=== PATIENT | female | born 1955 | race Hispanic/Latino ===

== ENCOUNTER 2018-03-04 20:20 | Emergency (ER) | payer MEDICARE, OTHER ==
[~2018-03-04] VITALS: Ht 139.7 cm; Wt 68.5 kg
--- NOTE | 2018-03-04 21:25 | Diagnostic Imaging Report ---
KNEE LEFT THREE VIEWS Comparison: None Clinical history: Pain Findings: No fracture or dislocation. Mild tricompartmental degenerative changes. Impression: No acute bony abnormality Signed by: Dr Sofi Sanabria MD on 03/04/2018 9:22 PM
[2018-03-04 23:34] VITALS: BP 139/73
[2018-03-05] MEDS ORDERED: HYDROCODONE/APAP 7.5MG-325MG 1 EA TAB PO ONE
== END 2018-03-04 22:06 | disposition home or self-care (01) ==
LOC: ER 20:20
DX: M25.562 Pain in left knee (principal); M79.652 Pain in left thigh; M17.12 Unilateral primary osteoarthritis, left knee; I10 Essential (primary) hypertension
CPT/HCPCS: 99283

== ENCOUNTER 2018-04-05 13:56 | Outpatient (RCR) | payer MEDICARE, OTHER | END 2018-04-07 | LOC: PT 13:56 | PROVIDERS: ATTEND Specialist | DX: M17.12 Unilateral primary osteoarthritis, left knee (principal); M25.562 Pain in left knee; M62.81 Muscle weakness (generalized) | CPT/HCPCS: 97162; G8978; G8979 ==

== ENCOUNTER 2018-04-24 15:00 | Outpatient (RCR) | payer MEDICARE, OTHER | END 2018-05-08 | LOC: PT 15:00 | PROVIDERS: ATTEND Specialist | DX: M17.12 Unilateral primary osteoarthritis, left knee (principal); M25.562 Pain in left knee; M62.81 Muscle weakness (generalized) ==

== ENCOUNTER 2018-11-06 05:26 | Observation (INO) | payer MEDICARE ==
[2018-11-03 10:47] LABS: BASOPHILS % 0.6 % (0.0-1.0); EOSINOPHILS # (AUTO) 0.1 (0.0-0.4); EOSINOPHILS % 2.4 % (0.0-6.0); HEMATOCRIT 41.2 % (34.2-44.1); HEMOGLOBIN 13.6 g/dL (12.0-16.0); LYMPHOCYTES # (AUTO) 1.5 (1.0-3.2); LYMPHOCYTES % 30.7 % (18.0-39.1); MEAN CORPUSCULAR HEMOGLOBIN 29.2 pg (28-32); MEAN CORPUSCULAR VOLUME 88.4 fL (81-99); MONOCYTES # (AUTO) 0.4 (0.2-0.8); MONOCYTES % 7.4 % (4.4-11.3); NEUTROPHILS # (AUTO) 2.9 (2.1-6.9); NEUTROPHILS % 58.5 % (38.7-80.0); PLATELET COUNT 245 x10e3/uL (140-360); RED BLOOD COUNT 4.66 x10e6/uL (3.6-5.1); RED CELL DISTRIBUTION WIDTH 12.8 % (11.7-14.4)
[~2018-11-06] VITALS: Ht 149.9 cm; Wt 69.9 kg
[~2018-11-06 05:26] MED LIST: LEVOTHYROXINE50 MCG PO
--- OUTSIDE RECORDS SUMMARY | 2018-11-06 05:32 | XMS REPORT ---
Author Author [facility] Address Unknown Phone Unavailable Care Team Providers Care Office Rental Clerk Name Role Phone Shon PAREDES Unavailable Unavailable Problems This patient has no known problems. Allergies, Adverse Reactions, Alerts This patient has no known allergies or adverse reactions. Medications This patient has no known medications. Results Test Description Test Time Test Comments Text Results Atomic Results Result Comments SCR MAMM BILATERAL ALHAJI CAD DIGITAL 2018-06-05 14:01:14 - SCR MAMM BILATERAL ALHAJI CAD DIGITALBILATERAL DIGITAL SCREENING MAMMOGRAM 3D/2D WITH CAD: 06/03/2018CLINICAL: Asymptomatic. Digital breast tomosynthesis was performed in addition to routine CC and MLO views. Current mammographic images were evaluated by either a [employer] M-Vu or a [employer] ImageChecker CAD (computer aided detection system). Comparison is made to exams dated 03/26/2017 mammogram, 05/10 mammogram - [facility]-, 06/01/2011 mammogram, and 05/12/2011 mammogram - [facility]. There are scattered fibroglandular tissues in both breasts. No suspicious mass, architectural distortion, malignant type calcification, or lymph node abnormality detected. Breast architecture is stable compared to prior exams.IMPRESSION: NEGATIVEThere is no mammographic evidence of malignancy. Resume annual screening mammography in one year. Christy Gaona D.O. al/:06/05/2018 14:01:14 Physician Office Secretary: Cintia PONCE, [facility]-FWletter sent: BIRADS 1-2 Normal Mammogram BI-RADS: 1 Negative KNEE LEFT THREE VIEWS 2018-03-04 21:21:[address] [address] Patient Name: FRIDA BARBER MR #: [id number] : 1955 Age/Sex: 62/F Req #: [id number] Adm Physician: Ordered by: EDVIN PAREDES MD Report #: [id number] Location: ER Room/Bed: Procedure: [id number] DX/KNEE LEFT THREE VIEWS Exam Date: 03/04/18 Exam Time: 2113 REPORT STATUS: Signed KNEE LEFT THREE VIEWS Comparison: None Clinical history: Pain Findings: No fracture or dislocation. Mild tricompartmental degenerative changes. Impression: No acute bony abnormality Signed by: Dr Cole Sanabria MD on 03/04/2018 9:22 PM Dictated By: COLE SANABRIA MD 21 Transcribed By: NICOLE on 03/04/182121 COPY TO: EDVIN PAREDES MD
[2018-11-06] MEDS ORDERED: DEXAMETHASONE SOD PHOS 10 MG/1 ML VIAL ONE (05:54)
[2018-11-06] MEDS ORDERED: GABAPENTIN 300 MG CAP ONE (05:54)
[2018-11-06] MEDS ORDERED: CELECOXIB 200 MG CAP ONE (05:54)
[2018-11-06] MEDS ORDERED: CEFAZOLIN SOD 1 GM/NS 50ML 100 ML IV ONE (06:05)
[2018-11-06] MEDS ORDERED: VANCOMYCIN HCL 1,000 MG ONE (06:44)
[2018-11-06] MEDS ORDERED: BACITRACIN 50,000 UNIT VIAL ONE (06:44)
[2018-11-06] MEDS ORDERED: SODIUM CHLORIDE 0.9% 500ML 500 ML ONE (06:44)
[2018-11-06] MEDS ORDERED: TRANEXAMIC ACID 1,000 MG/10 ML ML ONE (06:45)
[2018-11-06] MEDS ORDERED: ROPIVACAINE 246.25 MG, EPINEPHRINE HCL 1:1000 1ML 0.5 MG, CLONIDINE HCL 0.08 MG, KETORO... INJ ONE ×5 (07:30)
[2018-11-06] MEDS ORDERED: PROMETHAZINE HCL (IM) 25 MG/ML VIAL INJ PRN (09:30)
[2018-11-06] MEDS ORDERED: DOCUSATE SODIUM 100 MG CAP PO PRN (09:30)
[2018-11-06] MEDS ORDERED: ACETAMINOPHEN 650 MG SUPP PR PRN (09:30)
[2018-11-06] MEDS ORDERED: HYDROCODONE/APAP 5MG-325MG TAB PO PRN (09:30)
[2018-11-06] MEDS ORDERED: ONDANSETRON HCL INJ 2MG/ML 2ML 2 MG/ML VIAL IV PRN (09:30)
[2018-11-06] MEDS ORDERED: HYDROCODONE/APAP 7.5MG-325MG 1 EA TAB PO PRN (09:30)
[2018-11-06] MEDS ORDERED: HYDROMORPHONE 2MG/ML 2 MG/ML ML ONE (09:58)
--- NOTE | 2018-11-06 11:09 | Diagnostic Imaging Report ---
Knee radiograph, 2 views. History: Post-operative. Findings: Postoperative findings of right knee arthroplasty with prosthetic components in anatomic alignment. No acute fracture. Overlying subcutaneous emphysema and surgical skin dex are present. IMPRESSION: Status post right knee replacement in anatomic position. Signed by: Mary Jane Conley MD on 11/06/2018 11:06 AM
[2018-11-06] MEDS: ACETAMINOPHEN 1000 MG/100 ML IV SCH ×2 (12:00→17:19)
--- NOTE | 2018-11-06 12:02 | Operative Report ---
DATE OF PROCEDURE: 11/06/2018 SURGEON: Herbie Shepherd MD BASEBALL SEWER HAND: Jas Bond PA-C. PREOPERATIVE DIAGNOSIS: Osteoarthritis right knee. POSTOPERATIVE DIAGNOSIS: Osteoarthritis right knee. PROCEDURE: Right total knee arthroplasty. INDICATIONS: The patient is a 63-year-old lady, who has clinic signs and symptoms consistent with advanced osteoarthritis of her right knee. She has failed conservative management and would like to proceed with a right total knee replacement. The risks and benefits of the procedure have been discussed. She states she understands and wishes to proceed. PROCEDURE IN DETAIL: The patient was brought to the operating room and placed under general anesthetic. She received prophylactic antibiotics, tranexamic acid, and a regional block in the holding area. Her right lower extremity was prepped and draped in a sterile manner. A preoperative time-out was performed. The extremity was exsanguinated and a proximal tourniquet was inflated to 300 mmHg. An anterior approach with a medial parapatellar arthrotomy was performed. Clear synovial fluid was removed from the joint. Soft tissue releases were performed to bring the knee up into flexion with the patella everted. Meniscal remnants, the anterior cruciate ligament and marginal osteophytes were removed. Throughout the case a [employer] Persona knee system was used. An extramedullary cutting guide was used to resect the proximal tibia. The tibial base plate was a size C. The central fin punch was impacted and attention was directed towards the distal femur. An intramedullary cutting guide was used to resect the distal femur in 5 degrees of valgus and rotation referencing off a combination of landmarks including Whitesides line, the epicondylar axis and the posterior condyles. The femoral component was a size #5. The anterior and posterior cuts were made. Trial reductions were performed. A 10 mm medial congruent tibial insert provided appropriate soft tissue balancing and full extension and 90 degrees of flexion. The patella was resurfaced with a 29 mm patellar button. The thickness was checked before and after and was right around 19 mm thick. Patellar tracking was noted to be concentric. The trial implants were removed. A 100 mL premixed pericapsular GIBSON injection was placed into the surrounding soft tissue. The knee was thoroughly irrigated with a shower tip pulsatile lavage. The knee had also been irrigated throughout the case with a spray mixture of diluted vancomycin and polymyxin spray. The components were cemented into place using a single mix of Palacos cement preloaded with antibiotics. Care was taken to remove extravasated cement. The wound was further irrigated while the cement cured. 500 mg of vancomycin powder was sprinkled into the knee joint. The arthrotomy was closed with interrupted #1 Ethibond. The knee was put through flexion and extension to ensure a secure closure. The skin was closed with subcuticular Vicryl and dex. A sterile Aquacel bandage was applied. An Alec wrap was applied. The patient tolerated the procedure without any complications. Blood loss was minimal. All needle and sponge counts were correct. Herbie Shepherd MD DR/DOUG /[id number]
[2018-11-06] MEDS ORDERED: DEXAMETHASONE SOD PHOS INJ 4 MG/ML VIAL ONE (13:44)
[2018-11-06] MEDS ORDERED: LIDOCAINE HCL 2% LOCAL INJ 5 ML SDV VIAL INJ ONE (13:44)
[2018-11-06] MEDS ORDERED: ONDANSETRON HCL INJ 2MG/ML 2ML 2 MG/ML VIAL ONE ×2 (13:44→14:16)
[2018-11-06] MEDS ORDERED: SEVOFLURANE INHAL SOLN 250 ML PEN BTL ONE (13:44)
[2018-11-06] MEDS ORDERED: PROPOFOL IV EMULSION 10 MG/ML 20 ML VIAL ONE (13:44)
[2018-11-06] MEDS ORDERED: DIPHENHYDRAMINE HCL INJ 50 MG/ML VIAL IM/IV PRN (14:15)
[2018-11-06] MEDS ORDERED: ROPIVACAINE 0.5% 5 MG/ML 30 ML SDV ONE (15:15)
[2018-11-06] MEDS ORDERED: LIDOCAINE 2% /EPINEPHRINE 20 ML SDV INJ ONE (15:15)
--- NOTE | 2018-11-06 15:24 | NUR ---
Pt received from PACU s/o total right knee replacement. Alert and oriented x3, with master wrap to right leg. Pain scale 0/10. Oriented to staff and surroundings. Encouraged to press call pillai if help needed. Pt verbalized understanding of teaching. Will monitor
[2018-11-06 16:00] VITALS: BP 115/62
[2018-11-06 17:06] VITALS: BP 115/62
[2018-11-06] MEDS: ASPIRIN 325 MG TAB PO SCH (17:18)
[2018-11-06] MEDS: CELECOXIB 100 MG CAP PO SCH (17:18)
[2018-11-06] MEDS: SODIUM CHLORIDE 0.9% 1000ML 1,000 ML IV SCH (17:18)
[2018-11-06] MEDS: CEFAZOLIN SOD 1 GM/NS 50ML 50 ML IV SCH ×2 (17:18→22:39)
[2018-11-06] MEDS ORDERED: FENTANYL CITRATE/PF 100MCG/2 ML INJ ONE (19:03)
[2018-11-06] MEDS ORDERED: MIDAZOLAM HCL 2 MG/2 ML VIAL ONE (19:03)
[2018-11-06 20:00] VITALS: BP 111/54
[2018-11-06] MEDS ORDERED: ZOLPIDEM TARTRATE 5 MG TAB PO PRN (21:00)
[2018-11-06] MEDS: KETOROLAC TROMETHAMINE 30 MG/ML VIAL IV PRN (22:39)
[2018-11-07] VITALS: BP 110/55
[2018-11-07] MEDS: SODIUM CHLORIDE 0.9% 1000ML 1,000 ML IV SCH ×2 (00:06→12:33)
[2018-11-07] MEDS: ACETAMINOPHEN 1000 MG/100 ML IV SCH ×2 (00:06→05:25)
[2018-11-07 02:32] VITALS: BP 111/54
[2018-11-07 04:00] VITALS: BP 101/53
[2018-11-07] MEDS: CEFAZOLIN SOD 1 GM/NS 50ML 50 ML IV SCH (05:25)
[2018-11-07 06:40] LABS: HEMATOCRIT 33.5 % (34.2-44.1)
--- NOTE | 2018-11-07 07:09 | NUR ---
pt alert resp even and unlabored at this time no distress noted, pt able to make needs known,no c/o pain when asked,pt on cpm at this time, pt call light in reach.
[2018-11-07 08:41] VITALS: BP 136/64
[2018-11-07 09:10] VITALS: BP 136/64
[2018-11-07] MEDS ORDERED: ACETAMINOPHEN 1000 MG/100 ML IV PRN (09:30)
[2018-11-07] MEDS: ASPIRIN 325 MG TAB PO SCH (09:37)
[2018-11-07] MEDS: CELECOXIB 100 MG CAP PO SCH (09:37)
[2018-11-07] MEDS: KETOROLAC TROMETHAMINE 30 MG/ML VIAL IV PRN (09:46)
--- NOTE | 2018-11-07 10:49 | NUR ---
PATIENT DME AND HOME HEALTH COMPANIES PRE-ARRANGED BY DR. CAMPUZANO'S OFFICE. PATIENT WITH HOME HEALTH AND DME CONTACT INFORMATION. PATIENT AWARE TO CALL CM IF ANY PROBLEMS OCCUR WITHIN 3 DAYS POST- DISCHARGE. HOME HEALTH EXPLAINED IN DEPTH WITH SERVICES PROVIDED. PATIENT VERBALLY UNDERSTOOD AND SIGNED CHOICE LETTER. THE FOLLOWING HOME HEALTH AND DME COMPANY VERIFIED PATIENT IS ON SERVICE WITH THEM: [facility] (P) [phone] (F) [phone] CM SPOKE TO BIBI WITH [facility]. PATIENT CONFIRMED TO BE SEEN TOMORROW 11/08. [employer] (P) [phone] (F) [phone] CM SPOKE WITH TARIK FROM [employer]. TARIK CONFIRMED PATIENT TO RECEIVE EQUIPMENT. EQUIPMENT DROPPED OFF AT BEDSIDE.
[2018-11-07] MEDS ORDERED: ASPIRIN81 MG PO (11:27)
[2018-11-07 12:30] VITALS: BP 128/58
--- NOTE | 2018-11-07 14:40 | NUR ---
Visit made by the Spiritual Care Department Pastoral Visitor, Leandra Decker. PV provided pastoral presence, prayer, hospitality, and supportive listening. Pastoral Visitor informed pt/family of the scope of Senior Support Analyst Services and availability. PIERRE FLORES Process Design Engineer Spiritual Care Department O: [phone] Pager: [phone] ([phone] number calling from)
--- NOTE | 2018-12-08 06:34 | Discharge Summary ---
CHIEF COMPLAINT: Right knee pain. HISTORY OF PRESENT ILLNESS: This patient is a 63-year-old female complains of right knee pain over the last year. She states that it has gotten progressively worse. Her x-rays are consistent with end-stage osteoarthritis of the right knee. The findings and options were discussed. She would now like to proceed with more aggressive intervention. The risks and benefits of a right total knee replacement were explained. The patient states she understands and wished to proceed. HOSPITAL COURSE: The patient underwent a right total knee replacement without complications. She was then transferred to the recovery room and the floor in stable condition. She progressed nicely with physical therapy. She remained stable through her hospital stay. She was able to be discharged home on postop day one. PRINCIPAL DIAGNOSIS: Osteoarthritis, right knee. PRINCIPLE PROCEDURES: Right total knee replacement. DISCHARGE INSTRUCTIONS: The patient was discharged home with home with physical therapy arranged. She was to be weightbearing as tolerated with a rolling walker. She was to resume her home medications as directed. She was to take aspirin once a day for DVT prophylaxis. She was instructed to return to our office in 8 to 10 days. Dictated by Jas Bond PA-C MD RONALDO Curtis/DOUG /[id number]
== END 2018-11-07 15:57 | disposition home health service (06) ==
LOC: OR 05:26 → PACU V 09:30 → MED/SURG 15:20
PROVIDERS: ADMIT Specialist; ATTEND Specialist
DX: M17.11 Unilateral primary osteoarthritis, right knee (principal); Z01.812 Encounter for preprocedural laboratory examination
CPT/HCPCS: 27447; 36415 ×2; 73560; 85014; 85018; 85025; 86850; 86900; 86920; 97110; 97116; 97139; 97161; 97530; C1713; G0378 ×2; J0131 ×2; J0171; J0690 ×2; J1100 ×2; J1170; J1885 ×2; J2001 ×2; J2250; J2405; J2704; J2795; J3370; J7030 ×2; J7040; C1776; J3010

== ENCOUNTER → 2019-02-05 | Outpatient (RCR) | payer MEDICARE ==
[~2019-02-05] MED LIST changes: +ACETAMINOPHEN 1000 MG/100 ML 100 ML IV ONE; +ASPIRIN81 MG PO; +HYDROMORPHONE 1MG/1ML INJ ONE
== END ==
LOC: PT 01-15 10:48
PROVIDERS: ATTEND Specialist
DX: Z96.651 Presence of right artificial knee joint (principal); Z47.1 Aftercare following joint replacement surgery; M17.0 Bilateral primary osteoarthritis of knee; M62.81 Muscle weakness (generalized); R26.2 Difficulty in walking, not elsewhere classified; M25.561 Pain in right knee
CPT/HCPCS: 97110 ×9; 97140 ×2; 97161; J0131; J1170

== ENCOUNTER 2019-03-06 08:00 | Outpatient (RCR) | payer MEDICARE ==
[~2019-03-06 08:00] MED LIST changes: -ACETAMINOPHEN 1000 MG/100 ML 100 ML IV ONE; -HYDROMORPHONE 1MG/1ML INJ ONE
== END 2019-03-08 ==
LOC: PT 08:00
PROVIDERS: ATTEND Specialist
DX: Z96.651 Presence of right artificial knee joint (principal); Z47.1 Aftercare following joint replacement surgery; M17.0 Bilateral primary osteoarthritis of knee; M25.561 Pain in right knee; R26.2 Difficulty in walking, not elsewhere classified; M62.81 Muscle weakness (generalized); M25.661 Stiffness of right knee, not elsewhere classified
CPT/HCPCS: 97139

== ENCOUNTER 2019-04-03 08:00 | Outpatient (RCR) | payer MEDICARE | END 2019-04-07 | LOC: PT 08:00 | PROVIDERS: ATTEND Specialist | DX: Z96.651 Presence of right artificial knee joint (principal); M17.0 Bilateral primary osteoarthritis of knee; Z47.1 Aftercare following joint replacement surgery; R26.2 Difficulty in walking, not elsewhere classified; M62.81 Muscle weakness (generalized); M25.561 Pain in right knee; M25.661 Stiffness of right knee, not elsewhere classified ==

== ENCOUNTER 2020-09-17 17:39 | Emergency (ER) | payer MEDICARE ==
[~2020-09-17] VITALS: Ht 149.9 cm; Wt 70.8 kg
[2020-09-17] MEDS ORDERED: SODIUM CHLORIDE 0.9% 1000ML 1,000 ML IV STA (17:58)
[2020-09-17] MEDS ORDERED: ONDANSETRON HCL INJ 2MG/ML 2ML 2 MG/ML VIAL IV STA (18:02)
[2020-09-17 18:15] LABS: HEMATOCRIT 40.3 % (34.2-44.1); HEMOGLOBIN 13.5 g/dL (12.0-16.0); MEAN CORPUSCULAR VOLUME 86.5 fL (81-99); RED BLOOD COUNT 4.66 x10e6/uL (3.6-5.1)
[2020-09-17] MEDS ORDERED: MORPHINE SULFATE INJ 4 MG/ML INJ 1ML IV PRN (18:15)
[2020-09-17 18:16] LABS: BASOPHILS % 0.5 % (0.0-1.0); EOSINOPHILS % 2.3 % (0.0-6.0); MEAN CORPUSCULAR HGB CONC 33.5 g/dL (31-35); MONOCYTES % 7.9 % (4.4-11.3); PLATELET COUNT 212 x10e3/uL (140-360); RED CELL DISTRIBUTION WIDTH 12.8 % (11.7-14.4)
[2020-09-17 18:40] LABS: ANION GAP 13.8 mmol/L (8-16); BLOOD UREA NITROGEN 15 mg/dL (7-26); BUN/CREATININE RATIO 21 (6-25); CARBON DIOXIDE 25 mmol/L (22-29); CHLORIDE 106 mmol/L (98-107); CREATININE, SERUM 0.71 mg/dL (0.57-1.11); EST GLOMERULAR FILTRATION RATE > 60 ML/MIN (60-); GLUCOSE 91 mg/dL (74-118); POTASSIUM 3.8 mmol/L (3.5-5.1); SODIUM 141 mmol/L (136-145)
[2020-09-17 18:41] LABS: ALANINE AMINOTRANSFERASE 16 IU/L (0-55); ALBUMIN 4.1 g/dL (3.5-5.0); ALBUMIN/GLOBULIN RATIO 1.3 (0.8-2.0); ALKALINE PHOSPHATASE 97 IU/L (40-150); CALCIUM 9.1 mg/dL (8.4-10.2); CREATINE KINASE 233 IU/L (29-168)
[2020-09-17] MEDS ORDERED: SODIUM CHLORIDE 0.9% 50ML 50 ML ONE (18:53)
[2020-09-17] MEDS ORDERED: IOPAMIDOL 370 MG/ML 200 ML INFUS..BTL INJ ONE (18:54)
[2020-09-17] MEDS ORDERED: CLINDAMYCIN HC150 MG PO (19:56)
[2020-09-17] MEDS ORDERED: CLOTRIMAZOLE15 GM TOP (19:56)
[2020-09-17 21:08] VITALS: BP 133/85
== END 2020-09-17 21:12 | disposition home or self-care (01) ==
LOC: ER 17:57
DX: L03.316 Cellulitis of umbilicus (principal); E78.5 Hyperlipidemia, unspecified; K21.9 Gastro-esophageal reflux disease without esophagitis; E03.9 Hypothyroidism, unspecified; F41.9 Anxiety disorder, unspecified; Z87.19 Personal history of other diseases of the digestive system; Z98.0 Intestinal bypass and anastomosis status
CPT/HCPCS: 36415; 74177; 80053; 82550; 82553; 84484; 85025; 99284; J7030; Q9967